=== PATIENT | female | born 1980 | race African-American/Black ===

== ENCOUNTER 2017-03-19 08:48 | Outpatient (CLI) | payer OTHER ==
--- NOTE | 2017-03-19 10:21 | Ultrasound Report ---
ULTRASOUND ABDOMEN COMPLETE: Technique: Transabdominal ultrasound with color Doppler interrogation. History: Hepatitis B. Findings: The liver is normal size, contour and echotexture. No liver mass or cirrhotic changes are detected. The gallbladder dimensions are within normal limits without intraluminal stone, wall thickening, or pericholecystic fluid. The CBD is normal caliber. The visualized portions of the pancreas including the head and proximal body are within normal limits. The kidneys demonstrate no hydronephrosis or mass. Cortical thickness and echogenicity are within normal limits bilaterally. The spleen and aorta are within normal limits. No aneurysmal dilatation is noted. No ascites. The bladder is unremarkable. IMPRESSION: Unremarkable abdominal ultrasound.
== END 2017-03-19 08:49 | disposition home or self-care (01) ==
LOC: US 08:48
PROVIDERS: ATTEND Internal Medicine Infectious Disease
DX: B18.1 Chronic viral hepatitis B without delta-agent (principal)
CPT/HCPCS: 76700